=== PATIENT | male | born 2000 | race Hispanic/Latino ===

== ENCOUNTER 2019-10-08 | Emergency (ER) | payer SELFPAY ==
[2019-10-08] MEDS ORDERED: BACTRIM DS1 TAB PO (16:54)
== END 2019-10-08 17:00 | disposition home or self-care (01) | DRG 603 ==
PROC: 0H96XZZ Drainage of Back Skin, External Approach (ICD-10-PCS; principal; 2019-10-08)
DX: L02.212 Cutaneous abscess of back [any part, except buttock and flank] (principal)